=== PATIENT | male | born 1985 | race Caucasian/White ===

== ENCOUNTER 2017-03-26 22:15 | Emergency (ER) | payer SELFPAY ==
--- NOTE | 2017-03-26 23:53 | ER Document Report ---
ED General - General Chief Complaint: Leg Swelling Stated Complaint: LEFT SWOLLEN LEG Time Seen by Provider: 03/26/17 23:35 Notes: Patient is a pleasant 31-year-old male presents with complaint of swelling and pain to the left leg. He says is been there for several months. He said last few days he has noticed increasing pain in the popliteal fossa that can goes up the back of his left leg. He says has some pain that radiates into his calf. Is also had some mild swelling as well. He does have eggs severe eczema over both lower extremities. He does not use any lotion on that currently. He does have history of eczema on his upper extremities as well. He says it is always worse during the summer time. Says thoracic with goes away and wear time. No history of PE or DVT. No chest pain or shortness of breath. No other complaints at this time. TRAVEL OUTSIDE OF THE [place] IN LAST 30 DAYS: No - Related Data Allergies/Adverse Reactions: No Known Allergies Allergy (Verified 03/26/17 22:20) Past Medical History - Social History Smoking Status: Current Every Day Smoker Chew tobacco use (# tins/day): No Frequency of alcohol use: None Drug Abuse: None Family History: Reviewed & Not Pertinent Renal/ Medical History: Denies: Hx Peritoneal Dialysis Surgical Hx: Negative Review of Systems - Review of Systems Notes: My Normal Review Basic REVIEW OF SYSTEMS: CONSTITUTIONAL : Denies fever, chills, or sweats. Denies recent illness. MUSCULOSKELETAL: Left leg pain SKIN: Eczema type rash. NEUROLOGICAL: Denies altered mental status or loss of consciousness. Denies headache. Denies weakness or paralysis or loss of use of either side. Denies problems with gait or speech. Denies sensory or motor loss. ALL OTHER SYSTEMS REVIEWED AND NEGATIVE. Physical Exam - Vital signs Vitals: Temp Pulse Resp BP Pulse Ox 97.7 F 88 20 137/73 H 98 03/26/17 22:20 03/26/17 22:20 03/26/17 22:20 03/26/17 22:20 03/26/17 22:20 - Notes Notes: General Appearance: Well nourished, alert, cooperative, no acute distress, no obvious discomfort. Well-appearing. Vitals: reviewed, See vital signs table. Extremities: strength 5/5 in all extremities, good pulses in all extremities, some pain palpation of the posterior aspect of her left leg mainly over the posterior popliteal fossa. Patient may have minimal swelling to the lower leg and left in comparison to the right. He does have significant eczema over both lower extremities as well as some over the upper extremities. There is no cellulitic type redness. No warmth., no edema. Skin: warm, dry, appropriate color, no rash Neuro: speech clear, oriented x 3, normal affect, responds appropriately to questions. Course - Re-evaluation Re-evalutation: 03/27/17 06:07 I did talk to the patient about the need for venous flex ultrasound to help rule out DVT. It is nighttime and we do not have that worksite wellness practitioner. I informed him of 3 different options. Option #1 would be to just stay here in the ER in the morning time that were performed. Option #2 would be to come back to the ER today time and check and to have a performed. Option #3 would be for me to write an outpatient prescription. Patient prefers to have an outpatient prescription written. I informed him that he needs to call the number on the prescription to have the study set up so that he can have a performed. I informed him that if he is unable to have the studies set up a suitable time that he is to return to the ER and have it done through the ER. Patient also has significant eczema. I did prescribe him triamcinolone cream. I encouraged him return to ER if he has any pain, chest pain, or shortness of breath. Did talk to him about prophylactically treating him with dose of Lovenox here. I did review the risks and benefits of this. Patient prefers to wait until he has the ultrasound done to determine whether or not he actually has a DVT before receiving Lovenox. Dictation of this chart was performed using voice recognition software; therefore, there may be some unintended grammatical errors. - Vital Signs Vital signs: Temp Pulse Resp BP Pulse Ox 97.7 F 74 18 121/68 98 03/26/17 22:20 03/27/17 00:21 03/27/17 00:21 03/27/17 00:21 03/27/17 00:21 Discharge - Discharge Clinical Impression: Left leg swelling, Eczema Condition: Good Disposition: HOME, SELF-CARE Additional Instructions: Please return to the ER immediately if you have worsening leg pain, fevers, or spreading redness in your leg. Please call the number on the prescription to arrange a time to return to have the ultrasound of your leg to rule out a clot. Please return to the ER immediately if you develop chest pain or difficulty breathing. Prescriptions: Triamcinolone Acetonide 453 gm TP DAILY #1 cream.gm. Forms: Return to Work, Follow-Up Outpatient Testing
[2017-03-27 00:23] VITALS: BP 121/68
== END 2017-03-27 00:21 | disposition home or self-care (01) ==
LOC: ER 22:15
DX: M79.89 Other specified soft tissue disorders (principal); M79.605 Pain in left leg; L30.9 Dermatitis, unspecified; F17.200 Nicotine dependence, unspecified, uncomplicated
CPT/HCPCS: 99283

== ENCOUNTER → 2017-03-27 | Outpatient (CLI) | payer SELFPAY ==
--- NOTE | 2017-03-27 16:37 | RADIOLOGY REPORT (SQ) ---
EXAM DESCRIPTION: VENOUS UNILATERAL LOWER COMPLETED DATE/TIME: 03/27/2017 4:23 pm REASON FOR STUDY: LLE PAIN, SWELLING M79.89 OTHER SPECIFIED SOFT TISSUE DISORDERS COMPARISON: None. TECHNIQUE: Dynamic and static siu scale and color images acquired of the left leg venous system. Se lected spectral images acquired with additional compression and augmentation maneuvers. The contralat eral common femoral vein and saphenofemoral junction were also imaged. Images stored on PACS. LIMITATIONS: None. FINDINGS: LEFT COMMON FEMORAL: Normal phasicity, compression and augmentation. No visualized echogenic material on g ray scale. No defects on color images. FEMORAL: Normal compression and augmentation. No visualized echogenic material on siu scale. No defe cts on color images. POPLITEAL: Normal compression, augmentation. No visualized echogenic material on siu scale. No defec ts on color images. CALF VESSELS: Normal compression, augmentation. No visualized echogenic material on siu scale. No de fects on color images. GSV and SSV: Normal compression, augmentation. No visualized echogenic material on siu scale. No def ects on color images. ANY DEEP VENOUS INSUFFICIENCY: Not evaluated. ANY EVIDENCE OF POPLITEAL CYST: No. OTHER: No other significant finding. RIGHT COMMON FEMORAL VEIN AND SAPHENOFEMORAL JUNCTION: Normal phasicity, compression and augmentation. No visualized echogenic material on siu scale. No de fects on color images. IMPRESSION: NO EVIDENCE OF DVT OR SVT IN THE LEFT LEG. TECHNICAL DOCUMENTATION: JOB ID: [id number] [employer]- All Rights Reserved
== END ==
LOC: SP 15:39
PROVIDERS: ATTEND Emergency Medicine
DX: M79.605 Pain in left leg (principal); M79.89 Other specified soft tissue disorders
CPT/HCPCS: 93971

== ENCOUNTER 2017-08-04 15:29 | Emergency (ER) | payer SELFPAY ==
[2017-08-04 15:35] VITALS: BP 116/76
--- NOTE | 2017-08-04 16:05 | ER Document Report ---
ED General - General Chief Complaint: Laceration Stated Complaint: RIGHT ARM INJURY Time Seen by Provider: 08/04/17 15:55 Mode of Arrival: Ambulatory Information source: Patient TRAVEL OUTSIDE OF THE [place] IN LAST 30 DAYS: No - HPI Notes: 31-year-old male reports pain from a liner laceration to the medial aspect to the right wrist from a knife x 2 hours. bleeding stable. /10, achy. no otc medications have been tried. worse with movement. better at rest. denies any n/ t in hand or finger. Denies previous hx of wrist pain. Denies hitting head or change in loc. Did not try any icing or elevation. denies any other area of injury. denies any sob, cp, n/v/d, abd pain, dizziness, LH, dysuria. Tetanus is up-to-date. . - Related Data Allergies/Adverse Reactions: No Known Allergies Allergy (Verified 03/26/17 22:20) Past Medical History - General Information source: Patient - Social History Smoking Status: Unknown if Ever Smoked Family History: Reviewed & Not Pertinent Renal/ Medical History: Denies: Hx Peritoneal Dialysis Review of Systems - Review of Systems Constitutional: No symptoms reported EENT: No symptoms reported Cardiovascular: No symptoms reported Respiratory: No symptoms reported Gastrointestinal: No symptoms reported Genitourinary: No symptoms reported Male Genitourinary: No symptoms reported Musculoskeletal: No symptoms reported Skin: See HPI Hematologic/Lymphatic: No symptoms reported Neurological/Psychological: No symptoms reported Physical Exam - Vital signs Vitals: Temp Pulse Resp BP Pulse Ox 97.8 F 85 18 116/76 99 08/04/17 15:32 08/04/17 15:32 08/04/17 15:32 08/04/17 15:32 08/04/17 15:32 Interpretation: Normal - Notes Notes: PHYSICAL EXAMINATION: GENERAL: Well-appearing, well-nourished and in no acute distress. HEAD: Atraumatic, normocephalic. NECK: Normal range of motion, supple without lymphadenopathy LUNGS: Breath sounds clear to auscultation bilaterally and equal. No wheezes rales or rhonchi. HEART: Regular rate and rhythm without murmurs Musculoskeletal: Normal range of motion, no pitting or edema. No cyanosis. NEUROLOGICAL: Cranial nerves grossly intact. Normal speech, normal gait. Normal sensory, motor exams PSYCH: Normal mood, normal affect. SKIN: Warm, Dry, normal turgor, no rashes or lesions noted. 2cm vertical laceration to medial aspect of right wrist. Normal motor and sensory function w ith flexion, extension, inversion, eversion of wrist. digits in right and left with full aprom. Normal flexion, extension, inversion, eversion, opposition of all fingers on right hand. . [employer] + 2 BUE equally. Snuffbox tenderness negative on radial pulses + 2. BUE equally. Negative kanavels sign. No vascular compromise. . full motor and sensory function with medial, radial and ulnar nerves Course - Re-evaluation Re-evalutation: 08/04/17 16:45 After performing a Medical Screening Examination, I estimate there is LOW risk for OPEN FRACTURE, COMPARTMENT SYNDROME, TENDON RUPTURE, ACUTE NEUROVASCULAR INJURY, or RETAINED FOREIGN BODY, thus I consider the discharge disposition reasonable. Also, there is no evidence or peritonitis, sepsis, or toxicity. I have reevaluated this patient multiple times and no significant life threatening changes are noted. The patient and I have discussed the diagnosis and risks, and we agree with discharging home with close follow-up with the understanding that symptoms and presentations can change. We also discussed returning to the Emergency Department immediately if new or worsening symptoms occur. We have discussed the symptoms which are most concerning (e.g., changing or worsening pain, fever, numbness, weakness, cool or painful digits) that necessitate immediate return. - Vital Signs Vital signs: Temp Pulse Resp BP Pulse Ox 97.8 F 85 18 116/76 99 08/04/17 15:32 08/04/17 15:32 08/04/17 15:32 08/04/17 15:32 08/04/17 15:32 Procedures - Laceration/Wound Repair Right Wrist Time completed: 16:33 Wound length (cm): 2 - cm Wound's Depth, Shape: Superficial, Linear Laceration pre-procedure: Sterile drapes applied, Shur-Clens applied Wound explored: Clean, No foreign body removed Irrigated w/ Saline (mLs): 300 - high pressure irrigation Wound Debrided: Minimal Wound Repaired With: Dermabond Post-procedure wound care: Splint applied Post-procedure NV exam normal: Yes Complications: No Notes: Consent given for laceration repair. Tolerated procedure without incident. All questions and concerns answered in regards to care of wound. Consent by patient given to place short velcro wrist splint,. cms intact, sensory motor function intact in bilateral upper extremities prior to splint application fiberglass splint placed without incident. cms intact 20 minutes after splint application. Bilateral upper motor and sensory function 20 minutes after application Discharge - Discharge Clinical Impression: Laceration Condition: Good Disposition: HOME, SELF-CARE Instructions: Laceration Care ([facility], [facility]) Additional Instructions: wound bandage with sterile gauze. avoid immersion in water x 24 hours. Keep cock up Velcro wrist splint on for at least 5 days, no greater than 7 days monitor for any s/s of infection such as erythema, induration, warmth to touch, purulent drainage.discussed splint care. Follow up with diagnostic sales specialist 1 week as needed. Follow-up with PCP within 3 days. Take antibiotic with food , eat yogurt daily to prevent loose stool. NON-SUTURED LACERATION: Your laceration did not require suturing. Some lacerations cannot be sutured because of increased infection risk, while others simply don't need stitches because they are shallow or very short. Your injury should be protected while it heals. Usually complete healing takes 10 to 14 days. Keep the dressing clean and dry, and change it every day. If you notice increasing pain, redness, swelling, drainage, or tender lumps in the armpit or groin above the injury, infection may be present. You should call the doctor at once. Keep the wound and dressing clean. Unless you were told otherwise, you may shower daily, blotting the wound dry with a clean, unused towel. At other times, If the dressing gets wet or blood soaked, remove it and blot the wound dry, then reapply a new dressing. Unless you were instructed otherwise, dressings should be changed at least daily. If any signs of infection occur (swelling, redness, drainage, increasing tenderness, red streaks, tender lumps in the armpit or groin above the laceration, or fever), see the doctor immediately. If you have been referred to another physician for follow-up care, call that physicians office for an appointment as you were instructed. If you experience a significant change in your laceration, or if you are concerned there may be an infection (swelling, redness, drainage, increasing tenderness, red streaks, tender lumps in the armpit or groin above the laceration, or fever) , return to the Emergency Department immediately re-evaluation. The antibiotics which have been prescribed are designed to decrease the risk of infection. Only certain types of wounds benefit from this -- the typical cut, scrape, or burn DOES NOT require antibiotics. Of course, infection can still occur despite the use of prophylactic antibiotics. Your wound will heal with less chance of an infectious complication if you take the medication as directed. The most important dose is the FIRST dose, so don't delay filling the prescription! FOLLOW-UP CARE: Please return in 3 days for an infection check and dressing change. If you have been referred to another physician for follow-up care, call that physicians office for an appointment as you were instructed. If you experience a significant change in your laceration, or if you are concerned there may be an infection (swelling, redness, drainage, increasing tenderness, red streaks, tender lumps in the armpit or groin above the laceration, or fever) , return to the Emergency Department immediately re-evaluation. Referrals: SWAPNA ROWLAND MD [COMMUNITY BASED STAFF] - Follow up as needed BECCA HARDING DO [ACTIVE STAFF] - Follow up as needed
== END 2017-08-04 16:54 | disposition home or self-care (01) ==
LOC: ER 15:29
DX: S61.511A Laceration without foreign body of right wrist, initial encounter (principal); W26.0XXA Contact with knife, initial encounter; Y93.89 Activity, other specified; Y99.0 Civilian activity done for income or pay
CPT/HCPCS: 99282; 12001; L3908